=== PATIENT | female | born 1980 | race Caucasian/White ===

== ENCOUNTER 2023-11-10 11:33 | Emergency (ER) | payer BC ==
[2023-11-10] MEDS ORDERED: Dexamethasone 4 mg/ml Vial ONE (12:03)
[2023-11-10] MEDS ORDERED: Lidocaine 4% Patch TD SCH (12:15)
[2023-11-10] MEDS ORDERED: Transdermal Patch Removal TOP SCH (23:59)
== END 2023-11-10 12:28 | disposition home or self-care (01) ==
LOC: ERS 11:33
DX: S39.012A Strain of muscle, fascia and tendon of lower back, initial encounter (principal); X58.XXXA Exposure to other specified factors, initial encounter
CPT/HCPCS: 99282; J1100